=== PATIENT | female | born 2005 | race Caucasian/White ===

== ENCOUNTER 2025-06-05 14:18 | Observation (INO) | payer BC ==
[~2025-06-05 14:18] MED LIST: Iopamidol-370 76% 500 ML MDV (1 ML CHARGE) ONE
[2025-06-05 14:39] LABS: #Basophils 0.07 10x3/uL (0.0-0.2); #Eosinophils 0.20 10x3/uL (0.0-0.7); #Monocytes 0.58 10x3/uL (0.11-0.59); #Neutrophils 3.30 10x3/uL (1.40-6.50); %Basophils 1.1 % (0.0-1.0); %Eosinophils 3.3 % (0.0-10.0); %Lymphocytes 31.9 % (28.0-48.0); %Monocytes 9.5 % (0.0-4.0); %Neutrophils 54.0 % (31.0-61.0); Hematocrit 37.9 % (36.0-47.0); Hemoglobin 12.0 g/dL (12.0-16.0); Mean Corpuscular Hemoglobin 27.8 pg (25.0-35.0); Mean Corpuscular Volume 87.7 fL (78.0-98.0); Platelet Count 229 10x3/uL (130-400); Red Blood Cell (RBC) Count 4.32 mill/uL (4.00-5.20); White Blood Cell (WBC) Count 6.11 10x3/uL (4.8-10.8)
[2025-06-05] MEDS ORDERED: Ketorolac Tromethamine 30 MG (1 mL) VIAL ONE (14:51)
[2025-06-05] MEDS ORDERED: Ondansetron PF 4 MG/2 ML Vial ONE ×2 (14:51→15:44)
[2025-06-05] MEDS ORDERED: CEFAZOLIN 1 GM VIAL ONE (14:52)
[2025-06-05 15:09] LABS: ALT (SGPT) 20 U/L (Less than 34); AST (SGOT) 45 U/L (11-34); Albumin 4.2 g/dL (3.1-4.5); Alkaline Phosphatase 58 U/L (40-100); Anion Gap 20 mmol/L (10-20); BUN (Urea Nitrogen) 13 mg/dL (7.0-18.7); Bilirubin, Total 0.5 mg/dL (0.3-1.2); Calc. Creatinine Clearance 0 mL/min (70-130); Calcium 9.0 mg/dL (7.8-10.44); Carbon Dioxide 15 mmol/L (22-29); Chloride 108 mmol/L (98-107); Globulin 3.2 g/dL (2.4-3.5); Glucose 106 mg/dL (70-105); Potassium 3.4 mmol/L (3.5-5.1); Sodium 140 mmol/L (136-145)
[2025-06-05] MEDS ORDERED: Lidocaine 1% w/Epinephrine 1:100K 20 ML VIAL ONE (15:38)
[2025-06-05] MEDS ORDERED: Dextrose 50% Abboject 50 ML SYRINGE SLOW IVP PRN (15:47)
[2025-06-05] MEDS ORDERED: Glucagon 1 MG/ML KIT IM PRN (15:47)
[2025-06-05] MEDS ORDERED: hydrALAZINE 20 MG/ML VIAL SLOW IVP PRN (15:47)
[2025-06-05] MEDS ORDERED: Ondansetron PF 4 MG/2 ML Vial IVP PRN (15:47)
[2025-06-05] MEDS ORDERED: Electrolyte Replacement Protocol 1 EACH FS SCH (18:37)
[2025-06-05 20:40] VITALS: BMI 19.5
[2025-06-05] MEDS: Acetaminophen 325 MG TAB PO PRN (20:42)
[2025-06-05] MEDS: Ketorolac Tromethamine 30 MG (1 mL) VIAL IVP SCH (22:26)
[2025-06-06 05:33] LABS: #Basophils 0.07 10x3/uL (0.0-0.2); #Eosinophils 0.17 10x3/uL (0.0-0.7); #Monocytes 0.87 10x3/uL (0.11-0.59); #Neutrophils 4.03 10x3/uL (1.40-6.50); %Basophils 1.0 % (0.0-1.0); %Eosinophils 2.4 % (0.0-10.0); %Lymphocytes 26.5 % (28.0-48.0); %Monocytes 12.4 % (0.0-4.0); %Neutrophils 57.6 % (31.0-61.0); Hematocrit 33.0 % (36.0-47.0); Hemoglobin 10.4 g/dL (12.0-16.0); Mean Corpuscular Hemoglobin 28.0 pg (25.0-35.0); Mean Corpuscular Volume 88.9 fL (78.0-98.0); Platelet Count 166 10x3/uL (130-400); Red Blood Cell (RBC) Count 3.71 mill/uL (4.00-5.20); White Blood Cell (WBC) Count 7.01 10x3/uL (4.8-10.8)
[2025-06-06 05:58] LABS: Anion Gap 9 mmol/L (10-20); BUN (Urea Nitrogen) 9 mg/dL (7.0-18.7); Calc. Creatinine Clearance 109 mL/min (70-130); Calcium 8.7 mg/dL (7.8-10.44); Carbon Dioxide 25 mmol/L (22-29); Chloride 108 mmol/L (98-107); Glucose 91 mg/dL (70-105); Potassium 4.6 mmol/L (3.5-5.1); Sodium 137 mmol/L (136-145)
[2025-06-06] MEDS: lamoTRIgine 100 MG TAB PO SCH (08:34)
[2025-06-06] MEDS: Sertraline 100 MG TAB PO SCH (08:36)
[2025-06-06 14:54] VITALS: BP 103/58; TEMP 98.1
== END 2025-06-06 15:21 | disposition home or self-care (01) ==
LOC: ERS 14:18 → ERHOLD 15:53 → SURG B 19:50
PROVIDERS: ADMIT Surgery; ATTEND Surgery
DX: S27.0XXA Traumatic pneumothorax, initial encounter (principal); V87.7XXA Person injured in collision between other specified motor vehicles (traffic), initial encounter
CPT/HCPCS: 12002; 36415; 36416; 70450; 70486; 71045; 71260; 72125; 72170; 74177; 80048; 80053; 84702; 85025; 93005; 96374; 96375; 96376; G0390; J0690; J1885; J2270; J2405; J7120; Q9967